=== PATIENT | male | born 1975 | race African-American/Black ===

== ENCOUNTER 2018-06-26 13:59 | Emergency (ER) | payer OTHER ==
[2018-06-26 15:45] LABS: Urine Appearance Clear; Urine Bilirubin Negative (Negative); Urine Blood Negative (Negative); Urine Color Yellow; Urine Glucose Negative (Negative); Urine Ketones 1+ (Negative); Urine Nitrite Negative (Negative); Urine Protein Negative (Negative); Urine Specific Gravity 1.019 (1.010-1.030); Urine Urobilinogen Negative (Negative)
[2018-06-26 15:52] LABS: ABS Basophils 0 10^3/ul (0-0.2); ABS Eosinophils 0 10^3/ul (0-0.6); ABS Lymphocytes 2.1 10^3/ul (1.0-4.8); ABS Monocytes 0.4 10^3/ul (0-0.8); ABS Neutrophils 4.3 10^3/ul (1.5-7.7); ABS Nucleated RBC 0 10^3/ul; Eosinophil % 0.2 %; Hematocrit 43 % (36-46); Hemoglobin 14.7 g/dL (14.0-18.0); Lymphocyte % 30.7 %; Mean Corpuscular HGB Conc 34 g/dL (31-36); Mean Corpuscular Hemoglobin 30 pg (27-31); Mean Corpuscular Volume 87 fL (80-94); Mean Platelet Volume 8.4 fL (7.4-10.4); Nucleated Red Blood Cells % 0.1; Platelet Count 333 10^3/uL (150-450); Red Blood Count 4.98 10^6 /uL (4.18-5.48); Red Cell Distribution Width 13 % (10.5-15); White Blood Count 6.8 10^3/uL (3.5-10.8)
--- NOTE | 2018-06-26 15:54 | ED ---
Psychiatric Complaint - HPI Summary HPI Summary: Patient is a 42-year-old male presenting to the ED stating he is "under a lot of stress." The patient is very pleasant and happy on examination. He denies any suicidal or homicidal thoughts. He denies any self-harm. He states he has a very positive self-esteem and would never consider harming himself. He denies any depression. He denies any anxiety. Per his there was collateral called to someone by his counselor who stated he needed to come to the ED stay for several days for a possible psychotic break. Patient is appearing to be unaware of this plan, but is happy to speak with someone and states he would like resources. - History Of Current Complaint Chief Complaint: EDPsychosocial Time Seen by Provider: 06/26/18 14:14 Hx Obtained From: Patient Onset/Duration: Gradual Onset Timing: Constant Severity Initially: Moderate Severity Currently: Moderate Character: Anxious - very stressed out Aggravating Factor(s): Nothing Alleviating Factor(s): Nothing Associated Signs And Symptoms: Positive: Sleep Disturbance - Risk Factor(s) Completed Suicide Risk Factors: Negative - Allergies/Home Medications Allergies/Adverse Reactions: Allergies Allergy/AdvReac Type Severity Reaction Status Date / Time No Known Allergies Allergy Verified 06/26/18 14:13 Home Medications: Home Medications NK [No Home Medications Reported] 06/26/18 [History Confirmed 06/26/18] PMH/Surg Hx/FS Hx/Imm Hx Previously Healthy: Yes - Immunization History Hx Pertussis Vaccination: No Immunizations Up to Date: Yes Infectious Disease History: No Infectious Disease History: Denies: Traveled Outside the [place] in Last 30 Days - Social History Occupation: Employed Full-time Lives: With Family Alcohol Use: Occasionally Hx Substance Use: No Substance Use Type: Reports: None Hx Tobacco Use: No Smoking Status (MU): Never Smoked Tobacco Review of Systems Constitutional: Negative Negative: Fever, Chills, Fatigue, Skin Diaphoresis Negative: Palpitations, Chest Pain Negative: Shortness Of Breath, Cough Genitourinary: Negative Positive: no symptoms reported, see HPI Negative: Arthralgia, Myalgia Negative: Headache, Weakness Psychological: Normal All Other Systems Reviewed And Are Negative: Yes Physical Exam Triage Information Reviewed: Yes Vital Signs On Initial Exam: Initial Vitals Temp Pulse Resp BP Pulse Ox 97.6 F 66 16 164/99 98 06/26/18 14:08 06/26/18 14:08 06/26/18 14:08 06/26/18 14:08 06/26/18 14:08 Vital Signs Reviewed: Yes Appearance: Positive: Well-Appearing, Well-Nourished Skin: Positive: Warm, Skin Color Reflects Adequate Perfusion Head/Face: Positive: Normal Head/Face Inspection Eyes: Positive: Conjunctiva Clear Neck: Positive: No Lymphadenopathy Respiratory/Lung Sounds: Positive: Clear to Auscultation, Breath Sounds Present Cardiovascular: Positive: RRR, Pulses are Symmetrical in both Upper and Lower Extremities Musculoskeletal: Positive: Normal, Strength/ROM Intact Psychiatric: Positive: Affect/Mood Appropriate Diagnostics - Vital Signs Vital Signs Temp Pulse Resp BP Pulse Ox 06/26/18 15:40 98.2 F 64 18 134/84 97 06/26/18 14:08 97.6 F 66 16 164/99 98 - Laboratory Lab Results: Lab Results 06/26/18 Range/Units 15:23 Urine Color Yellow Urine Appearance Clear Urine pH 6.0 (5-9) Ur Specific [place] 1.019 (1.010-1.030) Urine Protein Negative (Negative) Urine Ketones 1+ A (Negative) Urine Blood Negative (Negative) Urine Nitrate Negative (Negative) Urine Bilirubin Negative (Negative) Urine Urobilinogen Negative (Negative) Ur Leukocyte Esterase Negative (Negative) Urine Glucose Negative (Negative) Urine Ascorbic Acid * A (Negative) Result Diagrams: 06/26/18 15:45 Lab Statement: Any lab studies that have been ordered have been reviewed, and results considered in the medical decision making process. Course/Dx - Course Course Of Treatment: Patient offers no complaints at this time. He does state he is under a lot of stress, but denies any other concerns. He denies depression, anxiety, SI or HI. is at bedside stating she needs a full evaluation and admission per his therapist as he is acting psychotic. He is cleared for mental health at this time. - Differential Dx/Clinical Impression Provider Diagnosis: Psychoses Discharge - Sign-Out/Discharge Documenting (check all that apply): Sign-Out Patient Signing out patient TO: Martina Bermudez Patient Received Moderate/Deep Sedation with Procedure: No - Discharge Plan Condition: Fair Referrals: No Primary Care Phys,NOPCP [Primary Care Provider] - - Billing Disposition and Condition Condition: FAIR
[2018-06-26 16:06] LABS: Barbiturates Urine Screen None Detected (None Detect); Benzodiazepine Urine Screen None Detected (None Detect); Urine Cannabinoids Screen None Detected (None Detect)
[2018-06-26 16:41] LABS: ALT 17 U/L (7-52); AST 19 U/L (13-39); Albumin/Globulin Ratio 1.8 (1-3); Alkaline Phosphatase 43 U/L (34-104); Anion Gap 7 mmol/L (2-11); BUN/Creatinine Ratio 17.7 (8-20); Blood Urea Nitrogen 17 mg/dL (6-24); CO2 Carbon Dioxide 28 mmol/L (22-32); Calcium 9.7 mg/dL (8.6-10.3); Chloride 102 mmol/L (101-111); EGFR Non-African American 86.8 (>60); Globulin 2.8 g/dL (2-4); Glucose 110 mg/dL (70-100); Potassium 4.9 mmol/L (3.5-5.0); Sodium 137 mmol/L (135-145); Total Protein 7.8 g/dL (6.4-8.9)
[2018-06-26 16:46] LABS: TSH (Thyroid Stimulating Horm) 1.56 mcIU/mL (0.34-5.60)
[2018-06-26 16:54] LABS: Acetaminophen < 15 mcg/mL; Alcohol < 10 mg/dL (<10); Salicylate < 2.50 mg/dL (<30)
--- NOTE | 2018-06-26 17:31 | ED ---
Progress - Progress Note Progress Note: patient signed out by ирина Cronin pending MHE. after mental health exam patient will be discharge home. Course/Dx - Course Course Of Treatment: Patient offers no complaints at this time. He does state he is under a lot of stress, but denies any other concerns. He denies depression, anxiety, SI or HI. is at bedside stating she needs a full evaluation and admission per his therapist as he is acting psychotic. He is cleared for mental health at this time. after mental health exam patient will be discharge per dr troncoso for follow up outpatient. sleep medication was requested so will write for atarax. - Diagnoses Provider Diagnoses: Psychoses Discharge - Sign-Out/Discharge Documenting (check all that apply): Patient Departure, Receiving Sign-Out Receiving patient FROM: Ирина Penn Patient Received Moderate/Deep Sedation with Procedure: No - Discharge Plan Condition: Stable Disposition: HOME Prescriptions: hydrOXYzine HCL TAB* [Atarax TAB 50 MG *] 50 mg PO BEDTIME #7 tab Patient Education Materials: Insomnia (ED), Alcohol Use Disorder (ED), Anxiolysis in Adults (ED) Referrals: No Primary Care Phys,NOPCP [Primary Care Provider] - - Billing Disposition and Condition Condition: STABLE Disposition: Home
[2018-06-26 19:29] VITALS: BP 137/78
== END 2018-06-26 19:15 | disposition home or self-care (01) ==
LOC: ED 13:59
DX: F29 Unspecified psychosis not due to a substance or known physiological condition (principal); G47.9 Sleep disorder, unspecified; F43.9 Reaction to severe stress, unspecified
CPT/HCPCS: 36415; 80053; 80307; 80320; 80329; 81003; 84443; 85025; 99284; G0480

== ENCOUNTER 2018-06-27 16:31 | Inpatient (IN) | payer OTHER ==
--- NOTE | 2018-06-27 17:26 | ED ---
Psychiatric Complaint - HPI Summary HPI Summary: A 42 y/o M presents to ED with c/o constantly overwhelmed onset 2 days ago. He states being overly stressed while at work and working too many hours. He says he's bad at self-care. He feels good physically. Denies SI and HI. and children present in ED. Non-smoker. No ETOH. No recreational drug use. Per : Pt has not been sleeping for past 2.5 weeks. He has been very stressed due to work and his job is very demanding and he is very emotionally invested in it. Pt is usually very physically active and he has not been this week. They have had a lot of family stress recently: of her grandfather last week, the anniversary of three deaths in the patient's family. She states he has been drinking excessive recently, but his last ETOH was three days ago. They also have 15-year wedding anniversary coming up. They travelled to [facility] for work and [place] to meet distant family in the past 2 weeks. He was seen in [facility] yesterday and released. She states he was in a better place yesterday. Yesterday , she came home and his bags were packed, the kids bags were packed, and he was very disoriented, didn't know where he was going. Today his movements were jerky , and he was acting abnormally, so she felt she needed to bring him back him for everyone's safety. She states he had a previous similar episode 10 years ago with lots of stress, lack of sleep. - History Of Current Complaint Chief Complaint: EDMentalHealth Time Seen by Provider: 06/27/18 17:12 Hx Obtained From: Patient, Family/Marketing Planner - present Onset/Duration: Lasting Days, Still Present Timing: Constant Aggravating Factor(s): Recent Stress, Alcohol Use Associated Signs And Symptoms: Positive: Sleep Disturbance - not sleeping Has Suicidal: Denies: Thoughts Has Homicidal: Denies: Thoughts - Allergies/Home Medications Allergies/Adverse Reactions: Allergies Allergy/AdvReac Type Severity Reaction Status Date / Time No Known Allergies Allergy Verified 06/26/18 14:13 PMH/Surg Hx/FS Hx/Imm Hx Previously Healthy: Yes Sensory History: Denies: Hx Legally Blind, Hx Deafness Opthamlomology History: Denies: Hx Legally Blind EENT History: Denies: Hx Deafness Neurological History: Denies: Hx Dementia Psychiatric History: Denies: Hx Eating Disorder, Hx of Violent Episodes Against Others Infectious Disease History: No Infectious Disease History: Denies: Traveled Outside the [place] in Last 30 Days - Family History Family History: mom - bipolar disorder. pos: ETOH abuse. - Social History Occupation: Employed Full-time Lives: With Family Alcohol Use: Occasionally Hx Substance Use: No Substance Use Type: Reports: None Hx Tobacco Use: No Smoking Status (MU): Never Smoked Tobacco Review of Systems Negative: Fever Psychological: Other - pos: stressed, not sleeping Positive: Other - neg: SI, HI All Other Systems Reviewed And Are Negative: Yes Physical Exam - Summary Physical Exam Summary: Constitutional: Well-developed, Well-nourished, Alert. (-) Distressed Skin: Warm, Dry HENT: Normocephalic; Atraumatic Eyes: Conjunctiva normal Neck: Musculoskeletal ROM normal neck. (-) JVD, (-) Stridor, (-) Tracheal deviation Cardio: Rhythm regular, rate normal, Heart sounds normal; Intact distal pulses; The pedal pulses are 2+ and symmetric. Radial pulses are 2+ and symmetric. (-) Murmur Pulmonary/Chest wall: Effort normal. (-) Respiratory distress, (-) Wheezes, (-) Rales Abd: Soft, (-) tenderness, (-) Distension, (-) Guarding, (-) Rebound Musculoskeletal: (-) Edema Lymph: (-) Cervical adenopathy Neuro: Alert, Oriented x3 Psych: Mood and affect Normal Triage Information Reviewed: Yes Vital Signs On Initial Exam: Initial Vitals Temp Pulse Resp BP Pulse Ox 98.4 F 76 18 183/91 100 06/27/18 16:32 06/27/18 16:32 06/27/18 16:32 06/27/18 16:32 06/27/18 16:32 Vital Signs Reviewed: Yes Diagnostics - Vital Signs Vital Signs Temp Pulse Resp BP Pulse Ox 06/27/18 16:32 98.4 F 76 18 183/91 100 - Laboratory Result Diagrams: 06/27/18 18:39 06/27/18 18:39 Lab Statement: Any lab studies that have been ordered have been reviewed, and results considered in the medical decision making process. Course/Dx - Course Course Of Treatment: Lab work in unremarkable. Toxicology is negative. Pt is medically clear for MHE at 1945. PT WILL BE SIGNED-OUT TO DR. BRADSHAW AT SHIFT CHANGE PENDING mental health admission as we currently have no beds. - Differential Dx/Clinical Impression Differential Diagnosis/HQI/PQRI: Positive: Acute Psychosis, Other Provider Diagnosis: Psychosis - Physician Notifications Patient Is Medically Stable For: Psych Evaluation Discharge - Sign-Out/Discharge Documenting (check all that apply): Sign-Out Patient Signing out patient TO: Lyssa Bradshaw - pending MHE Patient Received Moderate/Deep Sedation with Procedure: No - Discharge Plan Referrals: No Primary Care Phys,NOPCP [Primary Care Provider] - - Attestation Statements Document Initiated by Scribe: Yes Documenting Scribe: Sy Cortes Provider For Whom Scribe is Documenting (Include Credential): Dr. Luiza Diaz MD Scribe Attestation: I, Sy Cortes, scribed for Dr. Luiza Diaz MD on at 2325. Scribe Documentation Reviewed: Yes Provider Attestation: The documentation as recorded by the Sy vargas accurately reflects the service I personally performed and the decisions made by me, Dr. Luiza Diaz MD Status of Scribe Document: Viewed
[2018-06-27 18:45] LABS: ABS Basophils 0 10^3/ul (0-0.2); ABS Eosinophils 0.1 10^3/ul (0-0.6); ABS Lymphocytes 1.4 10^3/ul (1.0-4.8); ABS Monocytes 0.6 10^3/ul (0-0.8); ABS Neutrophils 6.5 10^3/ul (1.5-7.7); ABS Nucleated RBC 0 10^3/ul; Eosinophil % 0.6 %; Hematocrit 44 % (36-46); Hemoglobin 15.3 g/dL (14.0-18.0); Mean Corpuscular HGB Conc 35 g/dL (31-36); Mean Corpuscular Hemoglobin 30 pg (27-31); Mean Corpuscular Volume 86 fL (80-94); Mean Platelet Volume 8.1 fL (7.4-10.4); Nucleated Red Blood Cells % 0.1; Platelet Count 367 10^3/uL (150-450); Red Blood Count 5.08 10^6 /uL (4.18-5.48); Red Cell Distribution Width 13 % (10.5-15); White Blood Count 8.6 10^3/uL (3.5-10.8)
[2018-06-27 18:58] LABS: Barbiturates Urine Screen None Detected (None Detect); Benzodiazepine Urine Screen None Detected (None Detect); Urine Cannabinoids Screen None Detected (None Detect)
[2018-06-27 19:03] LABS: ALT 18 U/L (7-52); AST 19 U/L (13-39); Albumin/Globulin Ratio 1.8 (1-3); Alkaline Phosphatase 43 U/L (34-104); Anion Gap 9 mmol/L (2-11); BUN/Creatinine Ratio 10.5 (8-20); Blood Urea Nitrogen 10 mg/dL (6-24); CO2 Carbon Dioxide 25 mmol/L (22-32); Calcium 9.7 mg/dL (8.6-10.3); Chloride 103 mmol/L (101-111); EGFR African American 106.2 (>60); EGFR Non-African American 87.8 (>60); Globulin 2.8 g/dL (2-4); Glucose 100 mg/dL (70-100); Potassium 3.9 mmol/L (3.5-5.0); Sodium 137 mmol/L (135-145); Total Protein 7.8 g/dL (6.4-8.9)
[2018-06-27 19:12] LABS: Acetaminophen < 15 mcg/mL; Alcohol < 10 mg/dL (<10); Salicylate < 2.50 mg/dL (<30)
[2018-06-27] MEDS ORDERED: Haloperidol INJ IV/IM* 5 MG/ML AMP IM ONE (19:16)
[2018-06-27 19:27] LABS: TSH (Thyroid Stimulating Horm) 1.16 mcIU/mL (0.34-5.60)
[2018-06-27 21:59] LABS: Urine Appearance Clear; Urine Bilirubin Negative (Negative); Urine Blood Negative (Negative); Urine Color Straw; Urine Glucose Negative (Negative); Urine Ketones Negative (Negative); Urine Nitrite Negative (Negative); Urine Protein Negative (Negative); Urine Specific Gravity 1.008 (1.010-1.030); Urine Urobilinogen Negative (Negative)
--- NOTE | 2018-06-27 22:29 | ED ---
Progress - Progress Note Progress Note: A 42 y/o M presents to ED with c/o constantly overwhelmed onset 2 days ago. He states being overly stressed while at work and working too many hours. He says he's bad at self-care. He feels good physically. Denies SI and HI. and children present in ED. Non-smoker. No ETOH. No recreational drug use. Patient signed out from Dr. Luiza Diaz to Dr. Lyssa Bradshaw during a shift change, pending a MHE. Patient will be signed out from Dr. Lyssa Bradshaw to Dr. Viviana Elena during a shift change, pending MHU hold. - Consult/PCP Time Called: 19:45 Course/Dx - Course Course Of Treatment: Lab work in unremarkable. Toxicology is negative. Pt is medically clear for MHE at 1945. PT WILL BE SIGNED-OUT TO DR. BRADSHAW AT SHIFT CHANGE PENDING MHE. Pt received a MHE and is on MHU hold. He will be signed out to Dr. Viviana Elena at shift change. - Diagnoses Provider Diagnoses: Psychosis Discharge - Sign-Out/Discharge Documenting (check all that apply): Sign-Out Patient, Receiving Sign-Out Signing out patient TO: Viviana Elena - MHU Hold Receiving patient FROM: Luiza Diaz - Pending a MHE - Discharge Plan Referrals: No Primary Care Phys,NOPCP [Primary Care Provider] - - Attestation Statements Document Initiated by Scribe: Yes Documenting Scribe: Paresh Beckwith Provider For Whom Scribe is Documenting (Include Credential): Lyssa Bradshaw MD Scribe Attestation: Paresh Nguyen, scribed for Lyssa Bradshaw MD on 06/28/18 at 0622. Status of Scribe Document: Ready
[2018-06-27] MEDS ORDERED: LORazepam TAB(*) 1 MG PO ONE (22:42)
[2018-06-28] MEDS ORDERED: Haloperidol INJ IV/IM* 5 MG/ML AMP IM ONE (02:58)
[2018-06-28] MEDS ORDERED: LORazepam INJ* 2 MG/ML 1 ML VIAL IM ONE (02:58)
[2018-06-28] MEDS ORDERED: diPHENhydraMINE IV* 50 MG/ML 1 ml VIAL (BENADRYL) IM ONE (02:59)
--- NOTE | 2018-06-28 07:19 | ED ---
Progress - Progress Note Progress Note: This patient was signed out from Dr. Bradshaw to Dr. Elena at shift change, pending MHE. Re-Evaluation - Re-Evaluation First Eval Re-Evaluation Time: 09:10 Comment: Dr. Blake, psychiatrist, reports pt is pending Lyme results. Pt is requiring admission, no further needs at this time. Course/Dx - Course Course Of Treatment: Patient was signed out from Dr. Bradshaw at shift change, pending MHE. Dr. Blake comes in to the ED and reports at 09:10 that pt is pending Lyme results. Pt is requiring admission, no further needs at this time. Mental health evalutor reports pt will be admitted by Dr. Blake at [facility] facility. Dr. Elena has signed admission paperwork. - Diagnoses Provider Diagnoses: Psychosis Discharge - Sign-Out/Discharge Documenting (check all that apply): Patient Departure - Admit to [facility], Receiving Sign-Out Receiving patient FROM: Lyssa Bradshaw Patient Received Moderate/Deep Sedation with Procedure: No - Discharge Plan Condition: Stable Disposition: [facility]IATRIC FAC[facility] Referrals: [facility]ICIAN REFERRAL [Outside] - Attestation Statements Document Initiated by Scribe: Yes Documenting Scribe: Ana Brewer Provider For Whom Scribe is Documenting (Include Credential): Viviana Elena MD Scribe Attestation: Ana Nguyen, scribed for Viviana Elena MD on 06/28/18 at 1312. Status of Scribe Document: Ready
--- NOTE | 2018-06-28 08:34 | PN ---
ED Flex Patient Progress Note Date of Service: 06/27/18 Subjective: This is a 42 year-old M who is pending admission to [facility] Unit / transfer to another psychiatric facility / discharge to home / or being observed secondary to psychosis.Pt. examined in room 15 at 0830. He is resting in bed. Pt. currently has 1:1 outside of room. Objective: Vitals: Most recent vital signs documented below. General NAD Laboratory: Current laboratory results documented below. Assessment: psychosis Plan: Pending disposition. Vital Signs Temp Pulse Resp BP Pulse Ox 99.1 F 79 16 152/76 98 06/28/18 01:45 06/28/18 07:01 06/28/18 03:09 06/28/18 07:01 06/28/18 07:01 Lab Results - Entire Visit 06/27/18 06/27/18 06/27/18 18:39 18:39 18:30 WBC 8.6 RBC 5.08 Hgb 15.3 Hct 44 MCV 86 MCH 30 MCHC 35 RDW 13 Plt Count 367 MPV 8.1 Neut % (Auto) 75.5 Lymph % (Auto) 16.0 [place] % (Auto) 7.3 Eos % (Auto) 0.6 Baso % (Auto) 0.6 Absolute Neuts (auto) 6.5 Absolute Lymphs (auto) 1.4 Absolute Monos (auto) 0.6 Absolute Eos (auto) 0.1 Absolute Basos (auto) 0 Absolute Nucleated RBC 0 Nucleated RBC % 0.1 Sodium 137 Potassium 3.9 Chloride 103 Carbon Dioxide 25 Anion Gap 9 BUN 10 Creatinine 0.95 Est GFR ( Amer) 106.2 Est GFR (Non-Af Amer) 87.8 BUN/Creatinine Ratio 10.5 Glucose 100 Calcium 9.7 Total Bilirubin 0.60 AST 19 ALT 18 Alkaline Phosphatase 43 Total Protein 7.8 Albumin 5.0 Globulin 2.8 Albumin/Globulin Ratio 1.8 TSH 1.16 Urine Color Straw Urine Appearance Clear Urine pH 6.0 Ur Specific [place] 1.008 L Urine Protein Negative Urine Ketones Negative Urine Blood Negative Urine Nitrate Negative Urine Bilirubin Negative Urine Urobilinogen Negative Ur Leukocyte Esterase Negative Urine Glucose Negative Salicylates < 2.50 Urine Opiates Screen Acetaminophen < 15 Ur Barbiturates Screen Ur Phencyclidine Scrn Ur Amphetamines Screen U Benzodiazepines Scrn Urine Cocaine Screen U Cannabinoids Screen Serum Alcohol < 10 03/19/19 18:24 WBC RBC Hgb Hct MCV MCH MCHC RDW Plt Count MPV Neut % (Auto) Lymph % (Auto) [place] % (Auto) Eos % (Auto) Baso % (Auto) Absolute Neuts (auto) Absolute Lymphs (auto) Absolute Monos (auto) Absolute Eos (auto) Absolute Basos (auto) Absolute Nucleated RBC Nucleated RBC % Sodium Potassium Chloride Carbon Dioxide Anion Gap BUN Creatinine Est GFR ( Amer) Est GFR (Non-Af Amer) BUN/Creatinine Ratio Glucose Calcium Total Bilirubin AST ALT Alkaline Phosphatase Total Protein Albumin Globulin Albumin/Globulin Ratio TSH Urine Color Urine Appearance Urine pH Ur Specific [place] Urine Protein Urine Ketones Urine Blood Urine Nitrate Urine Bilirubin Urine Urobilinogen Ur Leukocyte Esterase Urine Glucose Salicylates Urine Opiates Screen None detected Acetaminophen Ur Barbiturates Screen None detected Ur Phencyclidine Scrn None detected Ur Amphetamines Screen None detected U Benzodiazepines Scrn None detected Urine Cocaine Screen None detected U Cannabinoids Screen None detected Serum Alcohol Attestation Statement Provider Attestation: I was available for consult. This patient was seen by the JUSTIN. The patient was not presented to, seen by, or examined by me. -Wilver
[2018-06-28] MEDS ORDERED: Acetaminophen TAB* 325 MG PO PRN (11:12)
[2018-06-28] MEDS ORDERED: Al Hydrox/Mg Hydrox/Simet LIQ* 30 ML UDC PO PRN (11:12)
--- NOTE | 2018-06-28 11:12 | PN ---
ED Flex Patient Progress Note Date of Service: 06/28/18 Subjective: 42 y.o. 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 Patient denies SI or HI but cannot account for his odd actions and attempted to elope several times from the ED. reports he hasn't slept in weeks. Patient had tick exposure several weeks ago and Lyme titers are pending. Objective: middle-aged AA male, calm but bizarre; denies SI or HI Assessment: Unspecified Psychotic DO Plan: Will admit to adult [facility] on involuntary 9.39 legal status. Vital Signs Temp Pulse Resp BP Pulse Ox 99.1 F 79 16 152/76 98 06/28/18 01:45 06/28/18 07:01 06/28/18 03:09 06/28/18 07:01 06/28/18 07:01 Lab Results - Entire Visit 06/27/18 06/27/18 06/27/18 18:39 18:39 18:30 WBC 8.6 RBC 5.08 Hgb 15.3 Hct 44 MCV 86 MCH 30 MCHC 35 RDW 13 Plt Count 367 MPV 8.1 Neut % (Auto) 75.5 Lymph % (Auto) 16.0 [place] % (Auto) 7.3 Eos % (Auto) 0.6 Baso % (Auto) 0.6 Absolute Neuts (auto) 6.5 Absolute Lymphs (auto) 1.4 Absolute Monos (auto) 0.6 Absolute Eos (auto) 0.1 Absolute Basos (auto) 0 Absolute Nucleated RBC 0 Nucleated RBC % 0.1 Sodium 137 Potassium 3.9 Chloride 103 Carbon Dioxide 25 Anion Gap 9 BUN 10 Creatinine 0.95 Est GFR ( Amer) 106.2 Est GFR (Non-Af Amer) 87.8 BUN/Creatinine Ratio 10.5 Glucose 100 Calcium 9.7 Total Bilirubin 0.60 AST 19 ALT 18 Alkaline Phosphatase 43 Total Protein 7.8 Albumin 5.0 Globulin 2.8 Albumin/Globulin Ratio 1.8 TSH 1.16 Urine Color Straw Urine Appearance Clear Urine pH 6.0 Ur Specific [place] 1.008 L Urine Protein Negative Urine Ketones Negative Urine Blood Negative Urine Nitrate Negative Urine Bilirubin Negative Urine Urobilinogen Negative Ur Leukocyte Esterase Negative Urine Glucose Negative Salicylates < 2.50 Urine Opiates Screen Acetaminophen < 15 Ur Barbiturates Screen Ur Phencyclidine Scrn Ur Amphetamines Screen U Benzodiazepines Scrn Urine Cocaine Screen U Cannabinoids Screen Serum Alcohol < 10 06/27/18 18:24 WBC RBC Hgb Hct MCV MCH MCHC RDW Plt Count MPV Neut % (Auto) Lymph % (Auto) [place] % (Auto) Eos % (Auto) Baso % (Auto) Absolute Neuts (auto) Absolute Lymphs (auto) Absolute Monos (auto) Absolute Eos (auto) Absolute Basos (auto) Absolute Nucleated RBC Nucleated RBC % Sodium Potassium Chloride Carbon Dioxide Anion Gap BUN Creatinine Est GFR ( Amer) Est GFR (Non-Af Amer) BUN/Creatinine Ratio Glucose Calcium Total Bilirubin AST ALT Alkaline Phosphatase Total Protein Albumin Globulin Albumin/Globulin Ratio TSH Urine Color Urine Appearance Urine pH Ur Specific [place] Urine Protein Urine Ketones Urine Blood Urine Nitrate Urine Bilirubin Urine Urobilinogen Ur Leukocyte Esterase Urine Glucose Salicylates Urine Opiates Screen None detected Acetaminophen Ur Barbiturates Screen None detected Ur Phencyclidine Scrn None detected Ur Amphetamines Screen None detected U Benzodiazepines Scrn None detected Urine Cocaine Screen None detected U Cannabinoids Screen None detected Serum Alcohol
[2018-06-28] MEDS ORDERED: QUEtiapine TAB* 100 MG PO PRN (11:14)
[2018-06-28] MEDS ORDERED: hydrOXYzine HCL TAB* 50 MG PO PRN (11:14)
[2018-06-28 14:32] VITALS: BP 133/80
[2018-06-29 07:02] LABS: HDL Cholesterol 43.6 mg/dL
--- NOTE | 2018-06-29 23:48 | HP ---
CC: [facility] * HISTORY AND PHYSICAL AND DISCHARGE SUMMARY: DATE OF ADMISSION: 06/28/18 DATE OF DISCHARGE: 06/29/18 SUPERVISING PSYCHIATRIST: Ancelmo Blake MD.* (DICTATED BY GIOVANNA MAHAN NP) JUSTIFICATION FOR ADMISSION: The patient presented to the emergency department with disorganized behavior on 06/26/18, primarily related to stress and anxiety. He presented and was discharged home after a mental health evaluation. He presented again on 06/27/18 with worsening disorganized behavior and insomnia. He met criteria for admission and our census was full until the afternoon of 06/28/18. I met with the patient on the morning of 06/29/18. CHIEF COMPLAINT: "I have been super stressed at work". HISTORY OF PRESENT ILLNESS: The patient is a 42-year-old male , domiciled, employed, , and father of 2, who presented to the emergency department with bizarre and disorganized behavior from home. He had not been sleeping more than 2 or 3 hours a night for the past 2 weeks. He was agitated and erratic in the ER and given medications for agitation. Upon meeting with the patient, he presents as well related, organized, and pleasant. He is alert and oriented with good insight and judgment. He reports sleeping in the hospital was very helpful. He identifies that he is historically apt to take on many responsibilities and projects and realizes that he has been doing so with family and work obligations recently. He states that he felt increasing stress and anxiety for the past week, but was unable to avoid responsibilities. Therefore, he was only sleeping 2 to 3 hours per night. He and his both reported separately that a very similar incident happened 10 years ago with similar circumstances. The patient reports having a "great sleep" last night and attributes this to much improved presentation. He denies suicidal ideation or a history of suicidal ideation or self-harm. He endorses brief periods of lethargy, guilt, and anhedonia. He states he is typically a very active person. He is athletic and usually runs or bikes to work. He describes himself as very organized and neat. He denies obsessions or compulsions. He reports enjoying life and fatherhood and is proud to be the primary provider financially and emotionally. He identifies that he wants to be more proactive with self-care. He states that he had reached out to human resources at [employer] where he works and has started the process to identify outpatient therapy. He also states he is looking forward to some traveling with his family. The patient denies auditory or visual hallucinations. He denies agitation or debility. There are no perceptual disturbances noted. PAST PSYCHIATRIC HISTORY: The patient reports being hospitalized in [place] at [place] in 2007 related to a brief psychotic episode, states he was prescribed medications during that hospitalization and is forthcoming about "cheeking medications". He states that he did take the medications and felt foggy and slowed down and cognitively dull. He denies other medication trial since then. TRAUMA/ABUSE HISTORY: The patient denies a history of abuse. He states that the most traumatic part of his life was growing up in [place] in the 80s during the crack cocaine era. PAST MEDICAL HISTORY: Healthy. PAST SURGICAL HISTORY: None. PRIMARY CARE PROVIDER: The patient does not have a current primary care provider. He states that he has signed up for someone and it is on the back of his insurance card. CURRENT MEDICATIONS: No current medications. ALLERGIES: None. FAMILY PSYCHIATRIC HISTORY: The patient never met his biological father. He states that his mom might have some undiagnosed depression. Otherwise, no known family psychiatric history. SOCIAL HISTORY: The patient was raised by a single mother in [place], [place]. He graduated from [employer]. He and his were high school sweethearts. They later reunited and have been for 15 years. They have a 7-year-old daughter Soren and a 5-year-old son Terrence Burt Jr. 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 He obtained a Bachelor's degree and an MARII from [employer]. He has been working at [employer] for the past 3 years and also engages in consultation work. He denies legal or history. SUBSTANCE USE HISTORY: The patient reports social drinking is somewhat increased of late, occasional marijuana use. He reports trying Ecstasy once or twice in the remote past. He denies tobacco use. REVIEW OF SYSTEMS: Constitutional: Negative. No fever, chills, or fatigue. ENT: Negative. Cardiovascular: Negative. No chest pain or palpitations. Respiratory: Negative. Denies shortness of breath or cough. Musculoskeletal: Negative. Genitourinary: Negative. Neurological: Negative. PHYSICAL EXAMINATION VITAL SIGNS: T 97.6, P 77, RR 16, O2 saturation 100%, BP 133/80. The patient denies need for a physical exam citing lack of subjective need. I reviewed the emergency department reports. For further data, please see ED provider report. LABORATORY DATA: CBC within normal limits. Chemistry within normal limits. Hemoglobin A1c is 5.4. Lipid panel within normal limits. TSH normal at 1.16. Urinalysis within normal limits. Toxicology negative for salicylates, acetaminophen, or alcohol. Urine drug screen is negative, which is consistent with patient report. MENTAL STATUS EXAM: Javed is a 42-year-old male who is well groomed, dressed in his own clothing, and appears stated age. He is tall, thin framed with athletic built. He is pleasant and cooperative and answers questions fully. He is an excellent historian and forthcoming with information. He is alert and oriented x3. Concentration is good. Memory is 3/ 3. Mood is "fine." Affect is full range. Speech is normal rhythm, volume, and articulate. Thought process is coherent, logical, and goal directed. Thought content is negative for auditory, visual hallucinations, suicidal or homicidal ideation. He denies preoccupations, phobias, or rituals. Insight and judgment are good, in that he was agreeable to evaluation and stabilization in psychiatric facility. Fund of knowledge is excellent. DIAGNOSIS: Brief psychotic disorder with marked stressors, rule out mood disorder. ASSESSMENT: Javed is a 42-year-old male who is very driven and motivated in regards to family and work obligations. He has not been sleeping for more than 2 to 3 hours for the past week or 2, resulting in increased decompensation and brief episode of psychosis. His brought him to the emergency department on 06/26/18 for a mental health evaluation. He was discharged and given local resources. The following day, the family returned due to worsening symptoms including bizarre and disorganized behavior. He was deemed appropriate for psychiatric admission; however, our unit was full at the time. White awaiting an opening on the behavioral health unit or transfer to another facility, he was increasingly agitated in the emergency room and given 5 mg haloperidol, diphenhydramine 50 mg, and lorazepam 2 mg all intramuscularly. Bed became available on the mental health unit on the afternoon of 06/28/18. The patient primarily rested and slept through the night. Upon meeting with the provider today, the patient reported much improvement in mood. He attributed this to a night of sleep. He was well related, organized, and able to articulate series of events. He reported desire to be referred for counseling. He states he had already initiated the search through HR at [employer]. On day of meeting with provider, the patient denied need for continued observation. He denied need for medications and was not open to discussing possibilities at this time. We did discuss the potential diagnosis of bipolar disorder due to 2 psychiatric hospitalizations in his lifetime. He stated understanding to continue monitoring for this. He denied suicidal ideation. He denied homicidal ideation. He was safe and in behavioral control. The patient's was present and was agreeable with discharge as well. The patient was given information by Social Work in regards to [facility] and a local private therapist. In the meantime, the patient was given an intake at [facility]. He was encouraged to call with any questions or concerns. Due to obligation to treat in least restrictive setting, discharge was agreed upon by treatment team. GIOVANNA MAHAN NP [id number]/CPS #: [id number] MADELAINE
== END 2018-06-29 17:10 | disposition home or self-care (01) | DRG 885 ==
LOC: ED 16:31 → BSU 06-28 11:12
PROVIDERS: ADMIT Psychiatry & Neurology Psychiatry; ATTEND Psychiatry & Neurology Psychiatry
DX: F29 Unspecified psychosis not due to a substance or known physiological condition (principal); Z81.8 Family history of other mental and behavioral disorders
CPT/HCPCS: 36415; 80053; 80061; 80307; 80320; 80329; 81003; 83036; 84443; 85025; 85660; 86618; 93005; 99238; 99284; A9270-GY; G0480; J1200; J1630; J2060